=== PATIENT | female | born 1965 | race Caucasian/White ===

== ENCOUNTER 2020-07-04 01:30 | Emergency (ER) | payer BC, SELFPAY ==
--- NOTE | ~2020-07-04 | XR_ITS ---
XR chest 1V portable DATE: 07/04/2020 02:06 INDICATION: Cough, shortness of breath TECHNIQUE: Portable AP chest on 07/04/2020 at 0208 hours COMPARISON: None FINDINGS: Minimal atelectasis at the lung bases. The lungs are otherwise clear. No pleural effusion o r pulmonary vascular congestion or pneumothorax. Normal heart size. There is mild aortic unfolding. Included skeletal structures are unremarkable. IMPRESSION: Minimal atelectasis at the lung bases Reviewed, dictated and finalized at location A.
[2020-07-04 01:44] VITALS: BP 139/92; PULSE 106; RESP 26; TEMP 37.7; O2SAT 94
--- NOTE | 2020-07-04 01:59 | ECG_ITS ---
Measurements Intervals [place] Rate: 48 P: 41 [place]: 132 QRS: 20 QRSD: 86 T: 33 QT: 342 QTc: 308 Interpretive Statements SINUS TACHYCARDIA LOW QRS VOLTAGE IN PRECORDIAL LEADS BORDERLINE ECG Electronically Signed On 07-04-2020 7:04:42 CDT by Jamie Jimenez D.O.
[2020-07-04 02:11] VITALS: PULSE 96; O2SAT 96
[2020-07-04] MEDS: SODIUM CHLORIDE 0.9% IV 1,000 ML 999 ML IV CONT (02:11)
--- NOTE | 2020-07-04 02:28 | ED.SOB ---
HPI - SOB/Dyspnea General Chief Complaint: Shortness of Breath/Dyspnea Stated Complaint: shortness of breath Covid + Time Seen by Provider: 07/04/20 01:32 History of Present Illness HPI Narrative: Patient is a 55-year-old female who presents ER with shortness of breath. Patient diagnosed with COVID-19 5 days ago. She had persistent cough, loss of taste/smell, and fatigue. This evening when getting out of the bathtub she developed rapid shallow breathing. She felt more weak than typical. She reports over the last week she has been having diarrhea regularly. No nausea or vomiting. No alleviating factors. Related Data Allergies Allergy/AdvReac Type Severity Reaction Status Date / Time No Known Allergies Allergy Verified 07/04/20 01:47 Review of Systems Review of Systems: All systems reviewed & are unremarkable except as noted in HPI and below Constitutional: Constitutional: Denies chills, Reports fatigue and Denies fever(s) ENT: Denies nasal congestion and Denies sore throat Cardiovascular: Cardiovascular: Denies chest pain and Denies radiating jaw, neck or arm pain Respiratory: Respiratory: Reports cough, Reports dyspnea and Denies wheezing Gastrointestinal: Gastrointestinal: Denies abdominal pain, Denies nausea and Denies vomiting PMFSH Past Medical History Medical History (Updated 07/04/20 @ 05:02 by Cristian Stevens MD) Healthy female adult Surgical History Surgical History (Updated 07/04/20 @ 02:30 by Cristian Stevens MD) History of section Social History Social History (Updated 07/04/20 @ 02:30 by Cristian Stevens MD) Smoking status: Never smoker Exam Narrative: Exam Narrative: GENERAL: Uncomfortable-appearing, well-nourished, and in no acute distress. HEAD: Normocephalic, atraumatic. CHEST: Clear to auscultation but diminished at the bases. Frequent cough. No respiratory distress. HEART: Regular rate and rhythm. Normal peripheral pulses. ABDOMEN: Soft, nontender, nondistended. EXTREMITIES: Normal range of motion. No edema. NEURO: Alert and oriented x3. PSYCH: Normal mood and affect. Course Course Emergency Course: Patient hydrated. Informed of results. Will discharge with albuterol and recommend using it scheduled. Patient also reporting some issues with reflux we will start her on a PPI. Vital Signs Vital signs: Vital Signs Temperature 99.8 F H 07/04/20 01:44 Pulse Rate 106 H 07/04/20 01:44 Respiratory Rate 26 H 07/04/20 01:44 Blood Pressure 139/92 H 07/04/20 01:44 Pulse Oximetry 94 07/04/20 01:44 Temperature 99.8 F H 07/04/20 01:44 Pulse Rate 95 07/04/20 04:23 Respiratory Rate 17 07/04/20 04:23 Blood Pressure 129/86 07/04/20 04:23 Pulse Oximetry 100 07/04/20 04:23 MDM - SOB/Dyspnea Lab Data Result diagrams: 07/04/20 02:06 07/04/20 02:06 Labs: Lab Results 07/04/20 07/04/20 Range/Units 02:06 02:06 WBC 3.3 L (4.5-10.0) K/mm3 RBC 4.87 (4.2-5.4) M/mm3 Hgb 14.2 (12.0-15.0) g/dL Hct 42.7 (37.0-47.0) % MCV 87.7 (80-100) fl MCH 29.2 (26-34) pg MCHC 33.3 (32-36) g/dl RDW 12.4 (11.5-14.5) % Plt Count 156 (150-375) k/mm3 MPV 10.3 (7.4-10.4) fl Immature Gran % (Auto) 0.3 (0-0.5) % Neut % (Auto) 67.8 (45.5-73.1) % Lymph % (Auto) 22.6 (18.3-44.2) % [place] % (Auto) 9.0 H (2.6-8.5) % Eos % (Auto) 0.0 (0-4.4) % Baso % (Auto) 0.3 (0.2-1.2) % Lymph # (Auto) 0.75 L (0.9-3.2) K/mm3 [place] # (Auto) 0.3 (0.1-0.6) K/mm3 Eos # (Auto) 0.0 (0-0.3) K/mm3 Baso # (Auto) 0.0 (0.0-0.1) K/mm3 Abs Immat Gran (auto) 0.01 (0.00-0.031) K/mm3 Absolute Neuts (auto) 2.3 (1.3-6.7) K/mm3 Absolute Nucleated RBC 0.0 (0.0-0.012) K/mm3 Nucleated RBC % 0.0 (0.0-0.2) % Sodium 139 (137-145) mmol/L Potassium 3.6 (3.4-5.0) mmol/L Chloride 97 L (98-107) mmol/L Carbon Dioxide 33 H (22-30) mmol/L Anion Gap 9 (8-16) mmol/L BUN
[2020-07-04 02:35] VITALS: BP 118/79; PULSE 95; RESP 16; O2SAT 97
[2020-07-04 02:46] LABS: Basophils Percent Auto 0.3 % (0.2-1.2); Hematocrit 42.7 % (37.0-47.0); Hemoglobin 14.2 g/dL (12.0-15.0); Immature Granulocyte Absolute 0.01 K/mm3 (0.00-0.031); Immature Granulocyte Percent A 0.3 % (0-0.5); Lymphocytes Absolute Auto 0.75 K/mm3 (0.9-3.2); Lymphocytes Percent Auto 22.6 % (18.3-44.2); Mean Corpuscular HGB Conc 33.3 g/dl (32-36); Mean Corpuscular Hemoglobin 29.2 pg (26-34); Mean Corpuscular Volume 87.7 fl (80-100); Mean Platelet Volume 10.3 fl (7.4-10.4); Monocytes Absolute Auto 0.3 K/mm3 (0.1-0.6); Neutrophils Absolute Auto 2.3 K/mm3 (1.3-6.7); Neutrophils Percent Auto 67.8 % (45.5-73.1); Platelet Count Result 156 k/mm3 (150-375); Red Blood Count 4.87 M/mm3 (4.2-5.4); Red Cell Distribution Width 12.4 % (11.5-14.5); White Blood Count 3.3 K/mm3 (4.5-10.0)
[2020-07-04 02:57] LABS: Alanine Aminotransferase 231 U/L (4-35); Albumin Level 4.3 g/dL (3.5-5.1); Alkaline Phosphatase 81 U/L (38-126); Anion Gap 9 mmol/L (8-16); Aspartate Amino Transferase 204 U/L (14-36); Bilirubin,Total 0.6 mg/dL (0.2-1.3); Blood Urea Nitrogen 11 mg/dL (7-17); Calcium 9.3 mg/dL (8.4-10.2); Carbon Dioxide 33 mmol/L (22-30); Chloride 97 mmol/L (98-107); Estimated Glomerular Filt Rate > 60; Glucose 114 mg/dL (65-105); Potassium 3.6 mmol/L (3.4-5.0); Sodium 139 mmol/L (137-145)
[2020-07-04] MEDS: BENZONATATE 100 MG CAPSULE 200 MG PO (03:41)
[2020-07-04 04:23] VITALS: BP 129/86; PULSE 95; RESP 17; O2SAT 100
[2020-07-04 05:15] VITALS: BP 112/83; PULSE 94; RESP 19; TEMP 36.4; O2SAT 100
== END 2020-07-04 05:18 | disposition home or self-care (01) ==
PROVIDERS: Emergency Provider Emergency Medicine; PCP Internal Medicine
DX: U07.1 COVID-19 (principal); R06.00 Dyspnea, unspecified; K21.9 Gastro-esophageal reflux disease without esophagitis; R00.0 Tachycardia, unspecified
CPT/HCPCS: 36415; 71045; 80053; 85025; 93005; 96360; 99283; A9270; J7030